=== PATIENT | male | born 1955 | race Caucasian/White ===

== ENCOUNTER 2017-09-24 16:31 | Emergency (ER) | payer MEDICAID ==
--- NOTE | 2017-09-24 17:04 | EDM.PDOC ---
ED HPI GENERAL MEDICAL PROBLEM - General Chief Complaint: Chest Pain Stated Complaint: CHEST PAIN Time Seen by Provider: 09/24/17 16:55 Source of Information: Reports: Patient, RN Notes Reviewed History Limitations: Reports: No Limitations - History of Present Illness INITIAL COMMENTS - FREE TEXT/NARRATIVE: 62-year-old gentleman presents emergency department today with complaint of chest discomfort he recently underwent coronary angiogram 2 days prior initial report says only 30% blockage in the LAD no stenting was performed. He states he started having some discomfort approximately 4 hours prior no shortness of breath no nausea vomiting no diaphoresis he did not take any medications his discomfort now has resolved. He is very anxious about this., took asprin today - Related Data Allergies Allergy/AdvReac Type Severity Reaction Status Date / Time No Known Allergies Allergy Verified 09/24/17 16:46 Home Meds: Home Meds Aspirin [Adult Low Dose Aspirin EC] 81 mg PO DAILY 11/11/16 [History] Metoprolol Succinate [Toprol XL] 25 mg PO DAILY 09/24/17 [History] atorvaSTATin [Lipitor] 40 mg PO BEDTIME 09/24/17 [History] Past Medical History HEENT History: Reports: Impaired Vision Cardiovascular History: Reports: Angina, High Cholesterol, Hypertension Gastrointestinal History: Reports: GERD Psychiatric History: Reports: Anxiety - Infectious Disease History Infectious Disease History: Reports: Chicken Pox - Past Surgical History Other Musculoskeletal Surgeries/Procedures:: fractured jaw Social & Family History - Tobacco Use Smoking Status *Q: Never Smoker - Caffeine Use Caffeine Use: Reports: Soda - Recreational Drug Use Recreational Drug Use: No ED ROS GENERAL - Review of Systems Review Of Systems: See Below Constitutional: Reports: No Symptoms HEENT: Reports: No Symptoms Respiratory: Reports: No Symptoms Cardiovascular: Reports: Chest Pain GI/Abdominal: Reports: No Symptoms : Reports: No Symptoms Musculoskeletal: Reports: No Symptoms Skin: Reports: No Symptoms Neurological: Reports: No Symptoms ED EXAM, GENERAL - Physical Exam Exam: See Below Free Text/Narrative:: General: Male, not in any distress, alert and oriented x3 HEENT: head is atraumatic normocephalic, eyes pupils equal round reactive to light, sclera clear no conjunctivitis appreciated. Ears blocked by cerumen bilaterally. Nose no septal deviation, nares are clear, no blood present. Mouth mucosa is moist and pink no erythema or exudate noted in soft palate, tongue is midline uvula is midline, dentition is intact. Neck: Supple no thyromegaly no tracheal deviation. Nodes: Cervical nodes subclavicular nodes nontender no palpable lymphadenopathy noted. Lungs: clear to auscultation bilaterally with symmetrical respirations, no adventitious noise appreciated. CV: Regular rate and rhythm S1 and S2 appreciated no murmurs rubs or gallops noted. Abdomen: Soft, nontender, no palpable masses or organomegaly appreciated, no distention no guarding bowel sounds are present, Neuro: Cranial nerves II through XII grossly intact Skin: Warm and dry, intact Extremities: No lower extremity edema appreciated, Course - Vital Signs Last Recorded V/S: Last Vital Signs Temp 97.9 F 09/24/17 16:44 Pulse 58 L 09/24/17 17:01 Resp 15 09/24/17 17:01 BP 127/77 09/24/17 17:01 Pulse Ox 94 L 09/24/17 17:01 - Orders/Labs/Meds Orders: Active Orders 24 hr Category Date Time Status Cardiac Monitoring [RC] .As Directed Care 09/24/17 17:00 Active EKG Documentation Completion [RC] ASDIRECTED Care 09/24/17 17:01 Active Chest 1V Frontal [CR] Stat Exams 09/24/17 17:01 Taken EKG 12 Lead [EK] Stat Ther 09/24/17 17:01 Ordered Labs: Laboratory Tests 09/24/17 09/24/17 Range/Units 17:10 17:10 WBC 8.0 (4.5-11.0) K/uL RBC 4.81 (4.30-5.90) M/uL Hgb 14.4 (12.0-15.0) g/dL Hct 43.8 (40.0-54.0) % MCV 91 (80-98) fL MCH 30 (27-31) pg MCHC 33 (32-36) % Plt Count 196 (150-400) K/uL Neut % (Auto) 75 H (36-66) % Lymph % (Auto) 17 L (24-44) % [place] % (Auto) 7 H (2-6) % Eos % (Auto) 1 L (2-4) % Baso % (Auto) 1 (0-1) % Sodium 138 L (140-148) mmol/L Potassium 4.0 (3.6-5.2) mmol/L Chloride 104 (100-108) mmol/L Carbon Dioxide 25 (21-32) mmol/L Anion Gap 13.0 (5.0-14.0) mmol/L BUN 14 (7-18) mg/dL Creatinine 1.1 (0.8-1.3) mg/dL Est Cr Clr Drug Dosing 70.05 mL/min Estimated GFR (MDRD) > 60 (>60) Glucose 104 (74-106) mg/dL Calcium 8.8 (8.5-10.1) mg/dL Total Bilirubin 0.5 (0.2-1.0) mg/dL AST 22 (15-37) U/L ALT 27 (12-78) U/L Alkaline Phosphatase 95 (46-116) U/L CK-MB (CK-2) 2.6 (0-3.6) mg/mL Troponin I 0.047 (0.000-0.056) ng/mL Total Protein 6.7 (6.4-8.2) g/dL Albumin 3.6 (3.4-5.0) g/dL Globulin 3.1 (2.3-3.5) g/dL Albumin/Globulin Ratio 1.2 (1.2-2.2) Departure - Departure Time of Disposition: 18:17 Disposition: Home, Self-Care 01 Condition: Good Clinical Impression: Panic attack Referrals: Kiel Lorenzana HOME CARE MANAGER [Primary Care Provider] - Forms: ED Department Discharge Additional Instructions: Use Ativan as needed for anxiety symptoms, Please followup with your primary care provider in 5-7 days if not better, please call return to the emergency department with worsening of symptoms. - My Orders Last 24 Hours: My Active Orders 09/24/17 17:00 Cardiac Monitoring [RC] .As Directed 09/24/17 17:01 EKG Documentation Completion [RC] ASDIRECTED Chest 1V Frontal [CR] Stat EKG 12 Lead [EK] Stat - Assessment/Plan Last 24 Hours: My Active Orders 09/24/17 17:00 Cardiac Monitoring [RC] .As Directed 09/24/17 17:01 EKG Documentation Completion [RC] ASDIRECTED Chest 1V Frontal [CR] Stat EKG 12 Lead [EK] Stat Plan: Assessment Acuity = acute Site and laterality = panic attack complicated patient with known history of minimal coronary artery disease Etiology = probable generalized anxiety Manifestations = chest pain now resolved Location of injury = Home Lab values = CBC, CMP normal troponin 0.047 still normal limits EKG demonstrates normal sinus rhythm there is no ST changes or depressions, chest x- ray I did review films myself I cannot appreciate any acute process, the official read from radiology is pending Plan Discharged home with Ativan 1 mg by mouth 3 times a day when necessary total # 10 he has a follow-up appointment with his primary care provider next week This note was dictated using [email or web address] voice recognition software please call with any questions on syntax or osito.
[2017-09-24 18:17] VITALS: BP 125/79
--- NOTE | 2017-09-25 08:34 | CR ---
Chest 1V Frontal HISTORY: Chest Pain COMPARISON: None FINDINGS: Portable chest, 1711 hours. Mild linear atelectasis or scarring is noted left costophrenic angle. Remainder of the chest is clear . Cardiomediastinal silhouette is within normal limits. No vascular redistribution or pleural fluid c an be seen. Bony structures and soft tissues are unremarkable. Hiatal hernia is noted in the retrocar diac region. IMPRESSION: Probable mild linear atelectasis or scarring left lung base. No other acute chest abnormality is iden tified.
== END 2017-09-24 18:32 | disposition home or self-care (01) ==
LOC: JP.ED 16:31
DX: F41.0 Panic disorder [episodic paroxysmal anxiety] (principal); E78.00 Pure hypercholesterolemia, unspecified; I10 Essential (primary) hypertension; Z79.82 Long term (current) use of aspirin; Z79.899 Other long term (current) drug therapy
CPT/HCPCS: 36415; 71045; 71045-26; 80053; 82553; 84484; 85025; 93005; 99285-25

== ENCOUNTER 2023-10-05 17:09 | Emergency (ER) | payer MEDICARE ==
[2023-10-05 18:00] VITALS: PULSE 58
[2023-10-05 18:37] VITALS: BP 124/83
[2023-10-05 19:24] LABS: BASOPHILS ABSOLUTE AUTO 0.07 K/uL (0.00-0.10); BASOPHILS PERCENT AUTO 0.6 % (0.1-1.3); EOSINOPHILS ABSOLUTE AUTO 0.04 K/uL (0.00-0.40); EOSINOPHILS PERCENT AUTO 0.4 % (0.0-5.4); HEMATOCRIT 42.6 % (38.4-49.7); HEMOGLOBIN 14.9 g/dL (12.9-16.9); IMMATURE GRAN ABSOLUTE AUTO 0.06 K/uL (0.00-0.23); IMMATURE GRAN PERCENT AUTO 0.6 % (0.0-0.7); LYMPHOCYTES ABSOLUTE AUTO 1.68 K/uL (0.8-3.3); LYMPHOCYTES PERCENT AUTO 15.5 % (11.4-47.7); MEAN CORPUSCULAR VOLUME 91.6 fL (81.4-99.0); MONOCYTES ABSOLUTE AUTO 0.71 K/uL (0.20-0.90); MONOCYTES PERCENT AUTO 6.5 % (3.3-12.6); NEUTROPHILS ABSOLUTE AUTO 8.31 K/uL (1.0-7.6); NEUTROPHILS PERCENT AUTO 76.4 % (40.0-78.1); PLATELET COUNT,PLT 226 K/uL (130-375); RED BLOOD CELL COUNT 4.65 M/uL (4.14-5.76); WHITE BLOOD CELL COUNT,WBC 10.9 K/uL (3.2-11.0)
[2023-10-05 19:26] LABS: ANION GAP 11.7 mmol/L (5.0-14.0); CALCIUM 8.8 mg/dL (8.5-10.1); CREATININE 1.2 mg/dL (0.8-1.3); EST CRCL DRUG DOSING (CG) 59.14 mL/min
[2023-10-05 19:28] LABS: PROTHROMBIN TIME 10.1 sec (9.2-10.6)
== END 2023-10-05 19:51 | disposition home or self-care (01) ==
LOC: JP.ED 17:09
DX: F41.0 Panic disorder [episodic paroxysmal anxiety] (principal); I10 Essential (primary) hypertension; I20.9 Angina pectoris, unspecified; E78.00 Pure hypercholesterolemia, unspecified; Z79.82 Long term (current) use of aspirin; Z79.899 Other long term (current) drug therapy
CPT/HCPCS: 36415; 80048; 85025; 85610; 93005; 99283

== ENCOUNTER 2024-03-04 13:53 | Emergency (ER) | payer MEDICARE ==
[2024-03-04 14:11] VITALS: PULSE 61
[2024-03-04 14:46] LABS: HEMATOCRIT 43.7 % (38.4-49.7); HEMOGLOBIN 15.1 g/dL (12.9-16.9); MEAN CORPUSCULAR HEMOGLOBIN 32.4 pg (31.6-35.5); MEAN CORPUSCULAR HGB CONC 34.6 g/dL (31.6-35.5); MEAN CORPUSCULAR VOLUME 93.8 fL (81.4-99.0); RED BLOOD CELL COUNT 4.66 M/uL (4.14-5.76); WHITE BLOOD CELL COUNT,WBC 10.8 K/uL (3.2-11.0)
[2024-03-04 15:02] LABS: ANION GAP 7.3 mmol/L (5.0-14.0); CALCIUM 9.3 mg/dL (8.5-10.1); CREATININE 1.2 mg/dL (0.8-1.3); EST CRCL DRUG DOSING (CG) 59.22 mL/min; POTASSIUM,K 4.3 mmol/L (3.6-5.2)
[2024-03-04 15:25] VITALS: BP 117/72
== END 2024-03-04 16:05 | disposition home or self-care (01) ==
LOC: JP.ED 13:53
DX: R42 Dizziness and giddiness (principal); I10 Essential (primary) hypertension; E78.00 Pure hypercholesterolemia, unspecified; Z79.82 Long term (current) use of aspirin; Z79.899 Other long term (current) drug therapy
CPT/HCPCS: 36415; 80048; 83735; 84443; 85027; 99283; 99284